=== PATIENT | female | born 1930 | race Caucasian/White ===

== ENCOUNTER 2016-05-01 06:44 | Inpatient (IN) | payer OTHER, MEDICARE ==
[~2016-05-01] VITALS: Ht 154.9 cm; Wt 88.9 kg
--- NOTE | ~2016-05-01 | HC ---
[facility] [place] [address] CONSULTATION Name: KRYSTEN ADAMSON Room #: 419-P [facility] IN ..#: [id number] Admission: 05/01/16 Attend Phys: Bhavik Velasco MD Discharge: 05/04/16 Date of : 28 Report #: [id number] THIS REPORT FOR: //name// CC: Kyaw Velasco DATE OF SERVICE: 05/04/2016 HISTORY OF PRESENT ILLNESS: The patient is an 85-year-old white female who lives in assisted living, who had problems with weakness and significant diarrhea. She also was diagnosed with urinary tract infection. She was admitted to [facility] with colitis. She was noted to have urinary tract infection with dehydration. She also has amivepvt-jg-bhgojx protein-calorie malnutrition. We are seeing her in rehabilitation medicine consultation. PAST MEDICAL HISTORY: Includes osteoarthritis, osteopenia of the lumbar back, hypertension, dementia, hyperlipidemia, left tibial plateau fracture 03/24/2005, right foot fracture. HABITS: Nontobacco or alcohol use. MEDICATIONS: Please see the full medication listing. SOCIAL HISTORY: As noted above. Used a walker. No steps. Code status, DNR. REVIEW OF SYSTEMS: She notes that her diarrhea is much better. PHYSICAL EXAMINATION: GENERAL: An 85-year-old white female. She is in no distress. She is pleasant. She needs some cues, tends to defer to her daughter. VITAL SIGNS: Last recorded temperature is 97.9, pulse 72, respirations 20, blood pressure 160/42. NEUROLOGIC: She has some generalized weakness with sit to stand transfers at a min assist level. Gait is 60 feet contact guard with a front-wheeled walker. Lower extremity dressing is max assist. ASSESSMENT: An 85-year-old white female with the following problem list: 1. Generalized weakness and debilitation. 2. Colitis. 3. Urinary tract infection. 4. Dehydration. 5. Moderate to severe protein-calorie malnutrition. 6. Hypertension. 7. Hyperlipidemia. 8. History of dementia. [address] [address] CONSULTATION Name: KRYSTEN ADAMSON RODRIGUEZ Room #: 419-P [facility] IN ..#: [id number] Admission: 05/01/16 Attend Phys: Bhavik Velasco MD Discharge: 05/04/16 Date of : 28 Report #: [id number] 9. History of chronic prednisone usage. PLAN: The patient unfortunately does not meet medical necessity criteria for an acute [address] [place] [address] inpatient rehabilitation stay. Note that case management is working with the family on other therapy/jail facility options. I am in agreement with this plan. Discussion was held with the patient's daughter. <ELECTRONICALLY SIGNED> By: Kiel Saucedo MD 05/05/16 1624 [id number] [id number] Kiel Saucedo MD /nt
--- NOTE | ~2016-05-01 | EKG ---
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
[2016-05-01 06:45] VITALS: BP 151/58
[2016-05-01 07:02] LABS: ABSOLUTE NEUTROPHILS 12.8 thou/uL (1.4-8.2); BASOPHILS 1.1 % (0.0-2.0); EOSINOPHILS 0.4 % (0.0-3.0); HEMATOCRIT 37.7 % (37.0-47.0); HEMOGLOBIN 12.4 gm/dL (12.0-15.0); LYMPHOCYTES 21.4 % (24.0-44.0); MCH 28.5 pg (26.0-34.0); MCHC 32.9 % (28.0-37.0); MCV 86.6 fL (80.0-100.0); MONOCYTES 6.1 % (1.0-8.0); PLATELET COUNT 348 thou/uL (150-400); RBC 4.36 mil/uL (4.20-5.00); RDW 14.9 % (10.5-14.5); WBC 18.1 thou/uL (4.0-11.0)
[2016-05-01] MEDS ORDERED: CHILDREN'S ASPI81 MG PO (07:09)
[2016-05-01] MEDS ORDERED: AMLODIPINE BESYL5 MG PO (07:09)
[2016-05-01] MEDS ORDERED: VITAMIN B-12500 MCG PO (07:10)
[2016-05-01] MEDS ORDERED: OXYBUTYNIN 5 MG5 M2 PO (07:10)
[2016-05-01] MEDS ORDERED: PREDNISONE 10 M10 MG PO (07:10)
[2016-05-01] MEDS ORDERED: CLARITIN10 MG PO (07:11)
[2016-05-01] MEDS ORDERED: APAP500 PO (07:11)
[2016-05-01] MEDS ORDERED: ULTRAM 50MG TAB50 MG PO (07:11)
[2016-05-01] MEDS ORDERED: COLACE100 MG PO (07:11)
[2016-05-01] MEDS ORDERED: TYLENOL325 MG PO (07:12)
[2016-05-01] MEDS ORDERED: HYDROCODONE-AP1 EAC6 PO (07:12)
[2016-05-01] MEDS ORDERED: BIOFREEZE118 ML TP (07:12)
[2016-05-01 07:13] LABS: CALCIUM 8.7 mg/dL (8.5-10.1); CREATININE 0.9 mg/dL (0.6-1.3)
[2016-05-01 07:15] LABS: MANUAL DIFF NO
[2016-05-01 07:49] LABS: URINE BILIRUBIN NEGATIVE (Negative); URINE BLOOD 1+ (Negative); URINE COLOR YELLOW; URINE GLUCOSE-RANDOM* NEGATIVE (Negative); URINE KETONES NEGATIVE (Negative); URINE NITRITE NEGATIVE (Negative); URINE PROTEIN (DIPSTICK) NEGATIVE (Negative); URINE SPECIFIC GRAVITY 1.025 (1.003-1.035); URINE UROBILINOGEN 0.2 E.U./dl (0.2-1.0)
[2016-05-01 08:03] LABS: CASTS None Seen /LPF (None Seen); CRYSTALS None Seen /LPF (None Seen); SQUAMOUS >10 Many /LPF (0-3)
[2016-05-01 08:04] LABS: URINE RBC 3-10 Few /HPF (0-2); URINE WBC 6-15 Few /HPF (0-5)
[2016-05-01 10:30] VITALS: BP 135/49
[2016-05-01 10:55] VITALS: BP 143/64
[2016-05-01 15:56] VITALS: BP 157/61
[2016-05-01 20:00] VITALS: BP 140/59
[2016-05-02 04:30] VITALS: BP 143/64
[2016-05-02 05:17] LABS: ABSOLUTE NEUTROPHILS 5.1 thou/uL (1.4-8.2); BASOPHILS 1.3 % (0.0-2.0); EOSINOPHILS 1.4 % (0.0-3.0); HEMATOCRIT 33.7 % (37.0-47.0); LYMPHOCYTES 34.8 % (24.0-44.0); MCH 28.7 pg (26.0-34.0); MCHC 32.8 % (28.0-37.0); MCV 87.5 fL (80.0-100.0); MONOCYTES 7.3 % (1.0-8.0); PLATELET COUNT 303 thou/uL (150-400); POLYS 55.2 % (36.0-66.0); RBC 3.85 mil/uL (4.20-5.00); RDW 15.2 % (10.5-14.5); WBC 9.3 thou/uL (4.0-11.0)
[2016-05-02 05:31] LABS: ALBUMIN 2.7 g/dL (3.4-5.0); CALCIUM 8.1 mg/dL (8.5-10.1); CREATININE 0.8 mg/dL (0.6-1.3); MAGNESIUM 2.2 mg/dL (1.8-2.4); POTASSIUM 3.5 mmol/L (3.5-5.1); TOTAL BILIRUBIN 0.8 mg/dL (<0.1-1.0); TOTAL PROTEIN 6.1 g/dL (6.4-8.2)
[2016-05-02 05:35] LABS: MANUAL DIFF NO
[2016-05-02 07:38] VITALS: BP 144/61
[2016-05-02 16:08] VITALS: BP 162/68
[2016-05-02 20:00] VITALS: BP 147/54
[2016-05-03 04:00] VITALS: BP 135/49
[2016-05-03 04:54] LABS: HEMATOCRIT 34.9 % (37.0-47.0); HEMOGLOBIN 11.5 gm/dL (12.0-15.0); MCH 28.9 pg (26.0-34.0); MCV 87.6 fL (80.0-100.0); RBC 3.98 mil/uL (4.20-5.00); RDW 15.3 % (10.5-14.5); WBC 10.9 thou/uL (4.0-11.0)
[2016-05-03 05:09] LABS: CALCIUM 8.4 mg/dL (8.5-10.1); CREATININE 0.8 mg/dL (0.6-1.3); POTASSIUM 3.3 mmol/L (3.5-5.1)
[2016-05-03 07:20] VITALS: BP 143/61
[2016-05-03 16:23] VITALS: BP 155/66
[2016-05-03 20:00] VITALS: BP 143/59
[2016-05-04 04:49] VITALS: BP 152/67
[2016-05-04 08:16] VITALS: BP 160/42
[2016-05-04] MEDS ORDERED: FLAGYL500 MG PO (13:34)
[2016-05-04] MEDS ORDERED: CIPRO500 MG PO (13:34)
== END 2016-05-04 15:37 | DRG 871 ==
LOC: ER 06:44 → EROBS 09:16 → 4E 09:16
PROVIDERS: Emergency Medicine; Hospitalist; Nurse Practitioner
DX: A41.9 Sepsis, unspecified organism (principal); E43 Unspecified severe protein-calorie malnutrition; N39.0 Urinary tract infection, site not specified; M85.88 Other specified disorders of bone density and structure, other site; F03.90 Unspecified dementia, unspecified severity, without behavioral disturbance, psychotic disturbance, mood disturbance, and anxiety; Z66 Do not resuscitate; K52.9 Noninfective gastroenteritis and colitis, unspecified; E86.0 Dehydration; M19.90 Unspecified osteoarthritis, unspecified site; E78.5 Hyperlipidemia, unspecified; I10 Essential (primary) hypertension; Z79.899 Other long term (current) drug therapy; Z79.82 Long term (current) use of aspirin; Z87.81 Personal history of (healed) traumatic fracture; Z68.37 Body mass index [BMI] 37.0-37.9, adult
CPT/HCPCS: 10183

== ENCOUNTER 2016-06-22 23:01 | Inpatient (IN) | payer OTHER, MEDICARE ==
[~2016-06-22] VITALS: Ht 157.5 cm; Wt 89.4 kg
--- NOTE | ~2016-06-22 | H ---
[facility] [place] [address] HISTORY AND PHYSICAL Name: KRYSTEN ADAMSON Room #: 419-P ADM IN M.R.#: [id number] Admission: 06/23/16 Attend Phys: Arely Smith MD Discharge: Date of : 28 Report #: [id number] THIS REPORT FOR: //name// CC: Kyaw Smith DATE OF ADMISSION: 06/22/2016 ATTENDING PHYSICIAN: Dr. Arely Smith. PRIMARY CARE PHYSICIAN: Kyaw Suarez M.D. CHIEF COMPLAINT: Fever and confusion. HISTORY OF PRESENT ILLNESS: The patient is an 85-year-old female who currently resides at an assisted living facility, apparently EMS was called because she was confused, when they arrived, she was febrile with a temperature of 102.5. She was brought in to the ER and was noted to have cellulitis of bilateral lower extremities and has been admitted for IV antibiotics. She really does not complain of any pain in her legs. She says she does have some lower back pain after semi fall the other day. She said she had a fall in which she slid against a wall into a sitting position, but did not actually fall. She said her legs were feeling weak at this time. She did have x-rays done apparently, which were negative. She was diagnosed with a UTI at her facility and has been on Cipro for the last few days. She was actually admitted here in April with diarrhea and treated for colitis. Stool cultures were never obtained because her diarrhea resolved. She ended up going to rehab briefly and has been back at her assisted living facility. She reports that her diarrhea has improved, although upon my exam she was incontinent of a small amount of loose stool. She remains slightly confused, but does have a history of mild dementia. PAST MEDICAL HISTORY: Osteoarthritis, hypertension, dementia, hyperlipidemia. PAST SURGICAL HISTORY: D and C. ALLERGIES: None. HOME MEDICATIONS: Loratadine 10 mg daily, Cipro 500 mg b.i.d., amlodipine 5 mg daily, aspirin 81 mg daily, hydrocodone 5/325 one tab t.i.d. p.r.n., tramadol 50 mg q.i.d. p.r.n., Tylenol p.r.n., Colace 1 tab daily, prednisone 10 mg daily, oxybutynin 10 mg daily, vitamin B12 daily and vitamin D daily. SOCIAL HISTORY: The patient is currently from an assisted living facility. She says she ambulates with a walker. Denies any tobacco, alcohol or drug use. FAMILY HISTORY: Is noncontributory. [address] [address] HISTORY AND PHYSICAL Name: KRYSTEN ADAMSON Room #: 419-P [facility] IN M.R.#: [id number] Admission: 06/23/16 Attend Phys: Arely Smith MD Discharge: Date of : 28 Report #: [id number] REVIEW OF SYSTEMS: A 12-point review of systems was reviewed with the patient, otherwise negative unless stated in the HPI. PHYSICAL EXAMINATION: GENERAL: The patient is an alert, mildly confused female in no acute distress. VITAL SIGNS: Temperature max is 39.7, heart rate 98, respirations 23, blood pressure is 147/75, oxygen 93% on room air. HEENT: PERRLA, sclerae is nonicteric. Oral mucosa is pink and moist. NECK: Supple, no JVD noted. CARDIOVASCULAR: Normal S1, S2. No murmurs, rubs or gallops. RESPIRATORY: Breath sounds are clear bilateral upper lobes. She is diminished in bilateral bases. Breathing is nonlabored. ABDOMEN: Obese, soft. She is mildly tender to deep palpation in the right upper and lower quadrants. Bowel sounds are positive. VASCULAR: 1+ bilateral lower extremity edema. Pedal pulses are 2+. SKIN: Is intact. She has slight erythema, which is circumferential around both ankle areas. There is no open wounds in these areas, but there is a few small areas of ecchymosis. It is tender to touch and slightly warm. NEUROLOGIC: The patient is alert and oriented x 2. Initially she was not aware of where she was, but she did reorientate easily. She is following commands. Her speech is clear. She is able to move all extremities equally. No focal weakness noted. LABORATORY DATA: WBC is 20.1, hemoglobin 11.4, platelets 311. Sodium 138, potassium 3.8, BUN 21, creatinine 0.9, glucose 102. Lactate 1.1. LFTs are within normal limits. Chest x-ray showed cardiomegaly with minor left lung atelectasis and influenza was negative. UA is negative. ASSESSMENT AND PLAN: 1. Bilateral lower extremity cellulitis. This is likely the cause of her fevers and leukocytosis. We will continue with vancomycin and follow blood culture results. 2. Hypertension. Blood pressure is stable, continue home medications. 3. Leukocytosis and fever. The patient was recently here for colitis. She is currently having a small amount of loose stool. We will go ahead and send that for stool culture and C. difficile. She is having some mild right-sided abdominal pain. We will check abdominal ultrasound to rule out cholecystitis, although her liver enzymes are normal and her lactate is normal. Continue with vancomycin for cellulitis. 4. Mild dementia. Apparently, she is normally alert and oriented. 5. Code status: The patient is a DNR. 6. DVT prophylaxis. Start Lovenox. [facility] [address] [place] [address] HISTORY AND PHYSICAL Name: KRYSTEN ADAMSON Room #: 419-P ADM IN M.R.#: [id number] Admission: 06/23/16 Attend Phys: Arely Smith MD Discharge: Date of : 28 Report #: [id number] We will continue to follow the patient closely throughout the hospitalization and make changes based on clinical status. By: [id number] [id number] МАРИНА Valles /ar
[~2016-06-22 23:01] MED LIST: AMLODIPINE BESYL5 MG PO; APAP500 PO; BIOFREEZE118 ML TP; CHILDREN'S ASPI81 MG PO; CIPRO500 MG PO; CLARITIN10 MG PO; COLACE100 MG PO; FLAGYL500 MG PO; HYDROCODONE-AP1 EAC6 PO; OXYBUTYNIN 5 MG5 M2 PO; PREDNISONE 10 M10 MG PO; TYLENOL325 MG PO; ULTRAM 50MG TAB50 MG PO; VITAMIN B-12500 MCG PO
[2016-06-22 23:02] VITALS: BP 147/75
[2016-06-22 23:33] LABS: HEMATOCRIT 34.9 % (37.0-47.0); HEMOGLOBIN 11.4 gm/dL (12.0-15.0); MCH 28.1 pg (26.0-34.0); MCHC 32.6 g/dL (28.0-37.0); MCV 86.1 fL (80.0-100.0); PLATELET COUNT 311 thou/uL (150-400); RBC 4.06 mil/uL (4.20-5.00); RDW 15.4 % (10.5-14.5); WBC 20.1 thou/uL (4.0-11.0)
[2016-06-22 23:45] LABS: MANUAL DIFF YES
[2016-06-22 23:57] LABS: ALBUMIN 3.2 g/dL (3.4-5.0); CALCIUM 8.8 mg/dL (8.5-10.1); CREATININE 0.9 mg/dL (0.6-1.3); POTASSIUM 3.8 mmol/L (3.5-5.1); TOTAL BILIRUBIN 0.9 mg/dL (<0.1-1.0); TOTAL PROTEIN 7.3 g/dL (6.4-8.2)
[2016-06-23 00:13] LABS: ABSOLUTE NEUTROPHILS 17.7 thou/uL (1.4-8.2); ATYPICAL LYMPHS 2 %; TOTAL CELL COUNT 100
[2016-06-23 00:22] LABS: URINE BILIRUBIN NEGATIVE (Negative); URINE BLOOD TRACE (Negative); URINE COLOR YELLOW; URINE GLUCOSE-RANDOM* NEGATIVE (Negative); URINE KETONES TRACE (Negative); URINE LEUKOCYTES-REFLEX NEGATIVE (Negative); URINE PROTEIN (DIPSTICK) TRACE (Negative); URINE SPECIFIC GRAVITY 1.025 (1.003-1.035); URINE UROBILINOGEN 0.2 E.U./dl (0.2-1.0)
[2016-06-23 00:52] VITALS: BP 156/66
[2016-06-23 01:10] VITALS: BP 126/57
[2016-06-23] MEDS ORDERED: NORVASC5 MG PO ×2 (02:30→02:31)
[2016-06-23] MEDS ORDERED: ASPIR 8181 MG PO (02:32)
[2016-06-23] MEDS ORDERED: COLACE 100 MG100 MG PO (02:33)
[2016-06-23] MEDS ORDERED: CLARITIN10 MG PO (02:35)
[2016-06-23] MEDS ORDERED: OXYBUTYNIN ER 55 M1 PO (02:37)
[2016-06-23] MEDS ORDERED: PREDNISONE 10 M10 MG PO (02:40)
[2016-06-23] MEDS ORDERED: VITAMIN B-12500 MCG PO (02:41)
[2016-06-23] MEDS ORDERED: VITAMIN D2000 UNIT PO (02:43)
[2016-06-23] MEDS ORDERED: BISACODYL SUPP10 MG RECTAL (03:03)
[2016-06-23 06:00] VITALS: BP 135/60
[2016-06-23 08:31] VITALS: BP 143/74
[2016-06-23 16:21] VITALS: BP 132/59
[2016-06-23 20:00] VITALS: BP 141/111
[2016-06-24 04:00] VITALS: BP 141/48
[2016-06-24 05:31] LABS: HEMATOCRIT 31.3 % (37.0-47.0); HEMOGLOBIN 10.2 gm/dL (12.0-15.0); MCH 28.4 pg (26.0-34.0); MCHC 32.6 g/dL (28.0-37.0); RBC 3.59 mil/uL (4.20-5.00); RDW 15.2 % (10.5-14.5); WBC 16.9 thou/uL (4.0-11.0)
[2016-06-24 05:45] LABS: CALCIUM 8.1 mg/dL (8.5-10.1); CREATININE 0.8 mg/dL (0.6-1.3); POTASSIUM 3.2 mmol/L (3.5-5.1)
[2016-06-24 07:24] VITALS: BP 140/55
[2016-06-24 15:15] VITALS: BP 155/60
[2016-06-24 20:00] VITALS: BP 143/57
[2016-06-25 04:00] VITALS: BP 191/73
[2016-06-25 06:48] LABS: HEMATOCRIT 35.4 % (37.0-47.0); HEMOGLOBIN 11.5 gm/dL (12.0-15.0); MCH 27.8 pg (26.0-34.0); MCHC 32.5 g/dL (28.0-37.0); MCV 85.7 fL (80.0-100.0); RBC 4.13 mil/uL (4.20-5.00); WBC 15.8 thou/uL (4.0-11.0)
[2016-06-25 07:02] LABS: CALCIUM 8.8 mg/dL (8.5-10.1); CREATININE 0.8 mg/dL (0.6-1.3); POTASSIUM 3.3 mmol/L (3.5-5.1)
[2016-06-25 09:19] VITALS: BP 172/83
[2016-06-25 17:39] VITALS: BP 160/70
[2016-06-25 20:54] VITALS: BP 154/62
[2016-06-26 05:35] VITALS: BP 142/54
[2016-06-26 06:08] LABS: HEMATOCRIT 33.9 % (37.0-47.0); HEMOGLOBIN 11.1 gm/dL (12.0-15.0); MCH 27.8 pg (26.0-34.0); MCHC 32.8 g/dL (28.0-37.0); RBC 3.99 mil/uL (4.20-5.00); RDW 15.2 % (10.5-14.5); WBC 14.6 thou/uL (4.0-11.0)
[2016-06-26 06:36] LABS: ALBUMIN 2.4 g/dL (3.4-5.0); CALCIUM 8.5 mg/dL (8.5-10.1); CREATININE 0.8 mg/dL (0.6-1.3); MAGNESIUM 1.8 mg/dL (1.8-2.4); POTASSIUM 3.5 mmol/L (3.5-5.1); TOTAL BILIRUBIN 0.6 mg/dL (<0.1-1.0); TOTAL PROTEIN 6.5 g/dL (6.4-8.2)
[2016-06-26 08:00] VITALS: BP 149/57
[2016-06-26 15:58] VITALS: BP 137/62
[2016-06-26 20:00] VITALS: BP 142/59
[2016-06-27 04:00] VITALS: BP 141/64
[2016-06-27 04:08] LABS: HEMATOCRIT 35.4 % (37.0-47.0); HEMOGLOBIN 11.6 gm/dL (12.0-15.0); MCH 27.9 pg (26.0-34.0); MCHC 32.6 g/dL (28.0-37.0); MCV 85.5 fL (80.0-100.0); RBC 4.14 mil/uL (4.20-5.00); RDW 15.1 % (10.5-14.5)
[2016-06-27 04:26] LABS: CREATININE 0.9 mg/dL (0.6-1.3); POTASSIUM 3.4 mmol/L (3.5-5.1)
[2016-06-27 08:00] VITALS: BP 150/62
[2016-06-27] MEDS ORDERED: CEPHALEXIN 250250 M1 PO (09:22)
[2016-06-27] MEDS ORDERED: VANCOMYCIN100 MG/ML PO (09:22)
== END 2016-06-27 17:15 | DRG 871 ==
LOC: ER 23:01 → EROBS 06-23 00:36 → 4E 06-23 00:36
PROVIDERS: Emergency Medicine; Family Medicine; Nurse Practitioner; Nurse Practitioner Acute Care
DX: A41.9 Sepsis, unspecified organism (principal); G93.41 Metabolic encephalopathy; L03.116 Cellulitis of left lower limb; A04.7 Enterocolitis due to Clostridium difficile; J98.11 Atelectasis; E44.1 Mild protein-calorie malnutrition; L03.115 Cellulitis of right lower limb; M19.90 Unspecified osteoarthritis, unspecified site; M85.88 Other specified disorders of bone density and structure, other site; I10 Essential (primary) hypertension; E87.6 Hypokalemia; F03.90 Unspecified dementia, unspecified severity, without behavioral disturbance, psychotic disturbance, mood disturbance, and anxiety; E78.5 Hyperlipidemia, unspecified; D72.829 Elevated white blood cell count, unspecified; Z66 Do not resuscitate; Z79.52 Long term (current) use of systemic steroids; Z79.82 Long term (current) use of aspirin; Z87.81 Personal history of (healed) traumatic fracture; Z79.899 Other long term (current) drug therapy
CPT/HCPCS: 10183